=== PATIENT | female | born 1990 | race Hispanic/Latino ===

== ENCOUNTER → 2019-03-26 | Outpatient (CLI) | payer OTHER | END | disposition home or self-care (01) | LOC: RAH 14:58 | PROVIDERS: ATTEND Internal Medicine | DX: S99.921A Unspecified injury of right foot, initial encounter (principal); W21.89XA Striking against or struck by other sports equipment, initial encounter; Y93.66 Activity, soccer; Y92.89 Other specified places as the place of occurrence of the external cause; Y99.8 Other external cause status | CPT/HCPCS: 73630 ==